=== PATIENT | male | born 2000 | race Hispanic/Latino ===

== ENCOUNTER 2024-03-31 19:10 | Emergency (ER) | payer SELFPAY ==
[2024-03-31] MEDS ORDERED: HYDROcodone/Acetaminophen 5/325 mg Tablet ONE (21:23)
== END 2024-03-31 21:55 | disposition home or self-care (01) ==
LOC: CSHERS 19:10
DX: S82.891A Other fracture of right lower leg, initial encounter for closed fracture (principal); Z87.891 Personal history of nicotine dependence; X58.XXXA Exposure to other specified factors, initial encounter
CPT/HCPCS: 29515

== ENCOUNTER 2024-11-01 17:59 | Emergency (ER) | payer BC, SELFPAY ==
[2024-11-01] MEDS ORDERED: Acetaminophen 500 MG TAB ONE (18:24)
== END 2024-11-01 19:01 | disposition home or self-care (01) ==
LOC: CSHERS 17:59
DX: U07.1 COVID-19 (principal); Z87.891 Personal history of nicotine dependence
CPT/HCPCS: 87081; 87428; 87430; 99283

== ENCOUNTER 2024-11-09 08:18 | Emergency (ER) | payer BC ==
[2024-11-09] MEDS ORDERED: Famotidine 20 MG TAB ONE (08:41)
[2024-11-09] MEDS ORDERED: diphenhydrAMINE 25 MG CAP ONE (08:41)
[2024-11-09] MEDS ORDERED: Dexamethasone 4 MG TAB ONE (08:42)
== END 2024-11-09 10:50 | disposition home or self-care (01) ==
LOC: CSHERS 08:18
DX: L50.0 Allergic urticaria (principal); Z55.6 Problems related to health literacy; Z75.3 Unavailability and inaccessibility of health-care facilities; Z87.891 Personal history of nicotine dependence
CPT/HCPCS: 99282; J8540